=== PATIENT | female | born 1980 | race Caucasian/White ===

== ENCOUNTER 2020-03-17 11:25 | Emergency (ER) | payer MEDICARE, MEDICAID, SELFPAY ==
[2020-03-17 11:47] VITALS: BP 130/83; PULSE 74; RESP 16; TEMP 36.6; O2SAT 99; BMI 28.1
--- NOTE | 2020-03-17 11:52 | ED.FEMALEGU ---
HPI - Female Genitourinary General Chief complaint: Urogenital-Female Stated complaint: personal issue Time Seen by Provider: 03/17/20 11:50 Source: patient Mode of arrival: ambulatory Limitations: no limitations History of Present Illness HPI Narrative: pateint states her boyfriend cheated on her and she is here for urinary frequency and also told by a RN and MD at her OBGYN that she could come here for her chronic rectal genital wart to be removed in the ED, patient also wants STI testing and treatment, has not actually seen her OB just called them on the phone MD elicited complaint: dysuria and other (wants genital wart removed, wants STI testing) Pertinent past history: STI/STD (states boyfriend cheated on her) Onset (ago): week(s) Location of symptoms: external genitalia Severity: mild Consistency: constant Vaginal discharge: none Vaginal bleeding: none Urinary symptoms: Dysuria and Frequency Exacerbating factors: none Relieving factors: none Associated symptoms: denies other symptoms (has a rectal genital wart that is not responding to treatments) Treatment prior to arrival: none Sexual activity: Yes Patient : No Related Data Home Medications Medication Instructions Recorded Confirmed clonazepam 0.5 mg tablet 0.5 mg PO BID PRN 01/14/20 paroxetine HCl 20 mg tablet 20 mg PO DAILY 01/14/20 Allergies Allergy/AdvReac Type Severity Reaction Status Date / Time ibuprofen Allergy Unknown Hives Verified 01/09/20 15:18 acetaminophen AdvReac Unknown Stomach Verified 01/09/20 15:18 [Tylenol-Codeine #3] pain/burning codeine [Tylenol-Codeine #3] AdvReac Unknown Stomach Verified 01/09/20 15:18 pain/burning Review of Systems Review of Systems: Constitutional : No Weight loss, No Fever, No Chills ENT/Mouth : No sore throat, No Rhinorrhea Eyes: No Swelling, No Redness Cardiovascular : No Chest Pain, No SOB, NoEdema Respiratory : No Cough, No Sputum, No Wheezing Gastrointestinal : no Nausea, no Vomiting, no Diarrhea, no abdominal Pain, No Hematochezia, No Melena Genitourinary : pos Dysuria, posUrinary Frequency, No Hematuria, No Urgency, no vaginal discharge, no pelvic pain Musculoskeletal : No joint pain, No Myalgias, No Joint Swelling Skin : No Skin Lesions, No rash Neuro : No Weakness, No Numbness, No Dizziness, No Headache Psych : No Anxiety/Panic, No Depression Heme/Lymph: No Bruising, No Lymphadenopathy Endocrine : No Polyuria, No Polydipsia All other systems reviewed and are negative. [facility] Past Medical History Medical History BRCA positive Genital warts Surgical History History of gastric surgery History of surgery Family History Family History (Updated 01/09/20 @ 15:22 by Jessica Deal, RMA, [employer]) Father No problems noted. Mother Lung tumor Maternal Grandmother Breast cancer Son No problems noted. Son No problems noted. Daughter No problems noted. Daughter No problems noted. Maternal Grandmother Breast cancer Maternal Aunt Ovarian cancer Social History Social History (Updated 03/17/20 @ 12:01 by Peyton Gong DO) Use of substances other than those prescribed or required for medical reasons: No Advance Directives: No Advance Directives Information Provided: No Physical Exam Vital Signs: Vital Signs: Last Vital Signs Temp 97.8 F 03/17/20 11:47 Pulse 74 03/17/20 11:47 Resp 16 03/17/20 11:47 BP 130/83 03/17/20 11:47 Pulse Ox 99 03/17/20 11:47 Body Mass Index 28.1 Appearance: Alert. Oriented X3. No acute distress. Eyes: Pupils equal, round and reactive to light. ENT: Pharynx normal. Neck: Normal inspection. Neck supple. CVS: Normal heart rate and rhythm. Pulses normal. Respiratory: No respiratory distress. Breath sounds normal. Abdomen: Soft and nontender. rectal: RN Jose present but noted is quarter sized genital wart on rectal mucosa non bleeding Skin: Skin warm and dry. Normal skin color. Normal skin turgor. Extremities: No lower extremity edema. No calf ttp Neuro: Oriented X 3. No motor deficit. No sensory deficit. Course Course Course Narrative: patient came up to my desk asking to leave despite no results, I am not even sure she gave G+C, she asked for the surgeon's number and states she is leaving I told her I do not have test results yet and she mumbled, call me and walked out. MDM - Female Genitourinary MDM Narrative Medical decision making narrative: 39 yo female here for STI testing no symptoms does have urinary frequency will check UA - wants STI testing plan for ceftriaxone and doxycycline pending UPT, G+C urine due to lack of reagant supplies and self swab for trichomonas, patient is upset that her rectal wart will not be removed today but at this time given the location I do not feel comfortable removing this - I understand her frustrations but she needs to see a general surgeon so I will refer on an outpatient basis Lab Data Labs: Lab Results 03/17/20 Range/Units 12:07 Chlam trachomat DNA PCR Cancelled N.gonorrhoeae DNA (PCR) Cancelled Discharge Plan Discharge Clinical Impression: Genital warts Patient Disposition: Elopement Instructions: Genital Warts (ED) Additional Instructions: return to ED for any worsening symptoms or concerns Prescriptions: No Action paroxetine HCl 20 mg tablet 20 mg PO DAILY RF: 0 clonazepam 0.5 mg tablet 0.5 mg PO BID PRNRF: 0 Referrals: Gil Liu MD [Physician] - 1 week
--- NOTE | 2020-03-17 11:57 | PC.NURSE ---
pt was seen by dr tracey and recommendation is for surgical consult and removal o has also offered antibiotic coverage for std exposure
[2020-03-17] MEDS: cefTRIAXone sodium 500 MG, Lidocaine HCl 1 % MPF 1 ML IM (12:10)
[2020-03-17 12:24] LABS: Glucose Urine UA NEG (NEG); Leukocyte Esterase Urine NEG (NEG); Nitrite Urine NEG (NEG); PH 6.5 (5.0-8.0); Urine Blood NEG (NEG); Urine Ketones NEG (NEG); Urine Protein NEG (NEG-TRACE)
[2020-03-17 12:26] LABS: Appearance Urine CLEAR; Color Urine YELLOW; UPreg QC Valid YES; Urine Pregnancy NEGATIVE (NEGATIVE)
[2020-03-18 18:27] LABS: C. trachomatis RNA TMA NOT DETECTED (NOT DETECTED); N. gonorrhoeae RNA TMA NOT DETECTED (NOT DETECTED)
== END 2020-03-17 12:36 | disposition left against medical advice (07) ==
PROVIDERS: Emergency Provider Emergency Medicine; PCP Nurse Practitioner Family
DX: A63.0 Anogenital (venereal) warts (principal); R35.0 Frequency of micturition; Z20.2 Contact with and (suspected) exposure to infections with a predominantly sexual mode of transmission
CPT/HCPCS: 36415; 81003; 81025; 87491; 87591; 96372; 99282; 99284; J0696

== ENCOUNTER → 2020-03-24 09:59 | Outpatient (BNVA) | payer MEDICARE, MEDICAID, SELFPAY | PROVIDERS: PCP Nurse Practitioner Family; Visit Provider Surgery | DX: K62.9 Disease of anus and rectum, unspecified (principal) | CPT/HCPCS: 99202 ==

== ENCOUNTER 2020-03-31 13:34 | Outpatient (REF) | payer MEDICARE, MEDICAID, SELFPAY ==
[2020-03-31 13:38] VITALS: BP 129/75; PULSE 77; RESP 19; TEMP 36.4; O2SAT 99; BMI 30.7
--- NOTE | 2020-03-31 15:04 | PM.OP ---
Brief Operative Note Date of Service: 03/31/20 Pre-op diagnosis: Perianal lesion Post-op diagnosis: same Procedure: Excision of perianal lesion under local anesthesia Surgeon: Gil Liu MD Anesthesia: local Estimated blood loss (mL): 1 Pathology: other (Perianal lesion) Condition: stable Disposition: other (Home)
--- NOTE | 2020-03-31 16:55 | OP_ITS ---
SURGEON: Gil Liu MD INDICATIONS: The patient is a 39-year-old female with note of a lesion on the right anterior perianal area. This was elevated, fleshy, and irregular, and about 1 cm in diameter. She understood technique of excision under local anesthesia and she is aware of the risks, benefits, and alternatives. PREOPERATIVE DIAGNOSIS: Perianal skin lesion. POSTOPERATIVE DIAGNOSIS: Perianal skin lesion. PROCEDURE PERFORMED: Excision of perianal skin lesion. ESTIMATED BLOOD LOSS: COMPLICATIONS: ANESTHESIA: ASSISTANTS: SPECIMENS: DESCRIPTION OF PROCEDURE: She was brought to the minor procedure room and placed in right lateral decubitus position. The right buttock was retracted with wide tape. This allowed good exposure of the perianal area. The lesion was in the right perianal area anteriorly. This area was prepped and draped. Lidocaine 1% was used for local anesthesia. An elliptical incision was made in the skin around this lesion using blade #15. It was carried down to full-thickness skin and part of subcutaneous layer to excise the entire lesion. This was sent as specimen. I closed the incision with full-thickness 3-0 absorbable plain gut sutures. Dressings were applied. She tolerated procedure well. There were no complications noted. She will be seen in the office for followup and wound check. MD KAREN Mccarty/ADRIANL / [phone]
== END 2020-03-31 15:00 | disposition home or self-care (01) ==
LOC: HO.MS 13:34
PROVIDERS: PCP Nurse Practitioner Family; Visit Provider Surgery
PROC: (CPT 46922; principal; 2020-03-31 13:50)
DX: D01.3 Carcinoma in situ of anus and anal canal (principal); A63.0 Anogenital (venereal) warts; F17.200 Nicotine dependence, unspecified, uncomplicated; Z79.899 Other long term (current) drug therapy; Z98.84 Bariatric surgery status; Z90.49 Acquired absence of other specified parts of digestive tract; Z88.8 Allergy status to other drugs, medicaments and biological substances
CPT/HCPCS: 46922; 88305; 88342; 88360

== ENCOUNTER 2020-06-30 16:05 | Emergency (ER) | payer MEDICARE, MEDICAID, SELFPAY ==
[2020-06-30 16:51] VITALS: BP 140/82; PULSE 61; RESP 18; TEMP 36.8; O2SAT 100; BMI 33.5
[2020-06-30 17:17] LABS: MANUAL DIFF FLAG NO
[2020-06-30 17:18] LABS: Basophils Absolute Auto 0.1 X10*3/uL (0.0-0.2); Basophils Percent Auto 0.6 % (0-2); Eosinophils Absolute Auto 0.2 X10*3/uL (0.0-0.4); Eosinophils Percent Auto 1.6 % (0-4); Hematocrit 48.2 % (37-47); Hemoglobin 15.9 g/dl (12.0-16.0); Imm Gran Abs Auto 0.03 X10*3/uL (0.00-0.03); Imm Gran Pct Auto 0.3 % (0.0-0.4); Lymphocytes Absolute Auto 2.9 X10*3/uL (1.2-4.9); Lymphocytes Percent Auto 28.2 % (20-40); Mean Corpuscular Hemoglobin 29.9 pg (27.0-33.0); Mean Corpuscular Volume 90.6 fL (80-98); Mean Platelet Volume 9.7 fL (9.4-12.3); Monocytes Absolute Auto 0.7 X10*3/uL (0.1-1.2); Monocytes Percent Auto 6.9 % (2-11); Neutrophils Absolute Auto 6.4 X10*3/uL (2.0-8.3); Neutrophils Percent Auto 62.4 % (45-73); Platelet Count 248 X10*3/uL (160-400); Red Blood Count 5.32 X10*6/uL (4.20-5.50); Red Cell Distribution Width 13.6 % (11.0-16.0); White Blood Count 10.3 X10*3/uL (4.8-10.8)
[2020-06-30 17:24] LABS: Glucose Urine UA NEG (NEG); Leukocyte Esterase Urine NEG (NEG); Nitrite Urine NEG (NEG); PH 5.5 (5.0-8.0); Urine Blood NEG (NEG); Urine Ketones NEG (NEG); Urine Protein NEG (NEG-TRACE)
[2020-06-30 17:26] LABS: Appearance Urine CLEAR; Color Urine YELLOW; UPreg QC Valid YES; Urine Pregnancy NEGATIVE (NEGATIVE)
[2020-06-30 17:57] LABS: Alanine Aminotransferase 14 U/L (0-31); Albumin Level 4.4 g/dL (3.5-5.0); Alkaline Phosphatase 86 U/L (39-117); Anion Gap 12 (12-20); Aspartate Amino Transferase 18 U/L (5-31); Bilirubin Total 1.5 mg/dL (0.0-1.0); Blood Urea Nitrogen 7 mg/dL (9-16); Calcium 9.4 mg/dL (8.4-10.2); Carbon Dioxide 28 mmol/L (22-29); Chloride 102 mmol/L (96-108); Creatinine Clr Calc Pharmacy 119.3; Estimated Glomerular Filt Rate > 60; Glucose Random 87 mg/dL (60-115); Potassium 3.8 mmol/L (3.3-5.1); Sodium 138 mmol/L (135-145); Total Protein 7.8 g/dL (6.5-8.0)
== END 2020-06-30 20:25 | disposition left against medical advice (07) ==
PROVIDERS: Emergency Provider Emergency Medicine; PCP Nurse Practitioner Family
DX: R10.9 Unspecified abdominal pain (principal); R10.2 Pelvic and perineal pain
CPT/HCPCS: 36415; 80053; 81003; 81025; 85025; 99283

== ENCOUNTER 2020-12-01 10:29 | Emergency (ER) | payer MEDICARE, MEDICAID, SELFPAY ==
--- NOTE | ~2020-12-01 | XR_ITS ---
EXAMINATION: XR ANKLE, LEFT CLINICAL INFORMATION: Pain COMPARISON: None TECHNIQUE: AP, lateral, and mortise views of the left ankle. FINDINGS: There is a well-corticated soft tissue ossification inferior to the lateral malleolus suggestive of old trauma. No acute fracture or dislocation is seen. The ankle mortise is normal. There are calcaneal spurs. Soft tissues are normal. XR/XR ankle LT min 3V IMPRESSION: No acute fracture or dislocation. Evidence of old trauma to the lateral malleolus. Calcaneal spurs.
[2020-12-01 11:02] VITALS: BP 130/81; PULSE 66; RESP 16; TEMP 36.1; O2SAT 98; BMI 33.0
== END 2020-12-01 12:51 | disposition left against medical advice (07) ==
LOC: HO.ED 12:50
PROVIDERS: Emergency Provider Emergency Medicine; PCP Nurse Practitioner Family
DX: M25.572 Pain in left ankle and joints of left foot (principal)
CPT/HCPCS: 73610; 99282; 99283

== ENCOUNTER → 2022-04-27 08:53 | Outpatient (BNVA) | payer OTHER, SELFPAY | PROVIDERS: PCP Nurse Practitioner Family; Visit Provider Internal Medicine | DX: S67.190A Crushing injury of right index finger, initial encounter (principal); S67.192A Crushing injury of right middle finger, initial encounter; W23.1XXA Caught, crushed, jammed, or pinched between stationary objects, initial encounter | CPT/HCPCS: 73140; 99204 ==

== ENCOUNTER → 2022-05-02 14:19 | Outpatient (BNVA) | payer OTHER, SELFPAY | PROVIDERS: PCP Nurse Practitioner Family; Visit Provider Physician Assistant Medical | DX: S67.190A Crushing injury of right index finger, initial encounter (principal); S67.192A Crushing injury of right middle finger, initial encounter; W23.1XXA Caught, crushed, jammed, or pinched between stationary objects, initial encounter | CPT/HCPCS: 99213 ==

== ENCOUNTER 2023-06-19 09:21 | Emergency (ER) | payer OTHER, SELFPAY ==
--- NOTE | ~2023-06-19 | US_ITS ---
EXAMINATION: US VENOUS ULTRASOUND WITH DOPPLER LOWER EXTREMITY, RIGHT CLINICAL INFORMATION: Calf pain. History of deep vein thrombosis. COMPARISON: None available. TECHNIQUE: Ultrasound of the deep veins is performed from the hip to the calf with compression sonography and color and pulse Doppler assessment. Spectral analysis with color-flow imaging is performed. FINDINGS: The common femoral vein is compressible and exhibits a normal phasic waveform; this suggests that the iliac veins are widely patent above. Within the proximal thigh, the visualized profunda femoris vein is normal. The examined greater saphenous vein and saphenofemoral junction are normal. Superficial femoral vein is patent in the proximal, mid and distal thigh. Popliteal vein is normal to the level of the trifurcation. On compression landaverde scale and color Doppler images, the visualized posterior tibial and peroneal veins of the calf are patent. Trace amount of fluid is seen at the posterior right knee joint. No Sagastume's cyst. US/US venous duplex LE RT IMPRESSION: No evidence of deep vein thrombosis in the right lower extremity.
[2023-06-19 09:48] VITALS: BP 99/67; PULSE 74; RESP 18; TEMP 36.9; O2SAT 100; BMI 26.9
[2023-06-19] MEDS: Acetaminophen 325 MG TABLET 975 MG PO (11:44)
--- NOTE | 2023-06-19 11:44 | ED_ITS ---
HPI - Extremity Problem General Chief complaint: Extremity Injury, Lower Stated complaint: R leg cramp- Time Seen by Provider: 06/19/23 11:06 Source: patient Mode of arrival: wheelchair Limitations: no limitations History of Present Illness HPI Narrative: 42 yo female with history of superficial thrombophlebitis to LLE in the past who is currently 7 weeks presents to the ER for evaluation of LLE pain and cramping for the last 3 weeks, acute worse at 6am today making it so she cannot ambulate. She states the pain Started in the right calf intermittently 3 weeks ago. It felt like a cramping pain. Complaint: extremity pain Onset (ago): week(s) (3) Pain Consistency: intermittent Quality: stabbing Radiation: none Relieving factors: nothing Exacerbating factors: other (swallowing) Associated symptoms: denies other symptoms Related Data Home Medications ?Medication ?Instructions ?Recorded ?Confirmed clonazepam 0.5 mg tablet 0.5 mg PO BID PRN 01/14/20 03/24/20 paroxetine HCl 20 mg tablet 20 mg PO DAILY 01/14/20 03/24/20 lorazepam 1 mg tablet 1 mg PO DAILY PRN 03/24/20 03/24/20 Previous Rx's ?Medication ?Instructions ?Recorded ibuprofen 800 mg tablet 800 mg PO TID PRN pain #30 tabs 04/27/22 Allergies Allergy/AdvReac Type Severity Reaction Status Date / Time codeine [Tylenol-Codeine #3] AdvReac Intermediate Stomach Verified 06/19/23 09:51 pain/burning Review of Systems 2 Review of Systems: Yes all other systems are reviewed and are negative PMFSH Past Medical History Medical History (Updated 06/19/23 @ 13:22 by TAYLOR Kearns) Perianal lesion Smoker Depression Genital warts BRCA positive Surgical History History of gastric surgery History of surgery Family History Family History Father No problems noted. Mother Lung tumor Maternal Grandmother Breast cancer Son No problems noted. Son No problems noted. Daughter No problems noted. Daughter No problems noted. Maternal Grandmother Breast cancer Maternal Aunt Ovarian cancer Social History Social History Alcohol intake: never Advance Directives: No Advance Directives Information Provided: Yes Physical Exam 2 Vital Signs: Vital Signs: Last Vital Signs Temp 98.5 F 06/19/23 12:00 Pulse 71 06/19/23 12:00 Resp 18 06/19/23 12:00 BP 103/58 L 06/19/23 12:00 Pulse Ox 98 06/19/23 12:00 O2 Del Method Room Air 06/19/23 12:00 BMI result Body Mass Index 26.9 Appearance: Alert. Oriented X3. No acute distress. Head: normocephalic, atraumatic. Eyes: Pupils equal, round and reactive to light. ENT: Pharynx normal. Neck: Normal inspection. CVS: Normal heart rate and rhythm. Pulses normal. Respiratory: No respiratory distress. Breath sounds normal. Abdomen: Soft and nontender. +BS x4 Skin: Skin warm and dry. Normal skin color. Normal skin turgor. No rashes. Extremities: No lower extremity edema. No joint swelling. scattered superficial bruising to the right lateral knee and right anterior lower leg. patient has tenderness to the right calf and right lateral joint space of the knee. Normal passive range of motion with some discomfort. No pain or tenderness of the popliteal fossa. Mild soft tissue tenderness of the right lateral thigh. Leg is warm and well perfused. Neurovascularly intact distally. Neuro/psych: Oriented X 3. No motor deficit. No sensory deficit. CN II-XII intact. Normal speech and cognition. Medications Administered Discontinued Medications Generic Name Dose Route Start Last Admin Trade Name Freq PRN Reason Stop Dose Admin Acetaminophen 975 mg 06/19/23 11:07 06/19/23 11:44 Acetaminophen 325 Mg Tablet PO 06/19/23 11:08 975 mg ONCE ONE Administration Medical Decision Making Medical Decision Making [facility] Narrative: 42-year-old female, currently 7 weeks along who presents to the ER for intermittent calf pain and cramping for the last 2-3 weeks along with nontraumatic right lateral knee pain. The blood clot in the left leg in the past was superficial, treated with aspirin. She has no chest pain or shortness of breath. Ultrasound of the right lower extremity was negative for deep vein thrombosis. Her lab workup was unremarkable. She was placed in Sukh wrap for compression and support of the right knee with improvement in her symptoms. She can now ambulate. At this time she is stable for discharge home with outpatient follow- up with OB and her PCP. She was given strict return precautions and expressed understanding. All questions were answered Differential Diagnosis Differential Diagnoses: The differential diagnosis associated with the presentation includes acute DVT, superficial thrombophlebitis, muscle strain, muscle cramping, dehydration, knee effusion, knee sprain, ligamentous injury, septic joint Admission/Observation Consideration of admission/observation: Escalation of care including admission/observation considered Lab Data MDM Lab Attestation statement: I reviewed the patient's lab results. 06/19/23 12:36 06/19/23 12:36 Labs: Lab Results 06/19/23 Range/Units 12:36 WBC 8.1 (4.8-10.8) X10*3/uL RBC 4.16 L (4.20-5.50) X10*6/uL Hgb 12.1 (12.0-16.0) g/dl Hct 36.3 L (37.0-47.0) % MCV 87.3 (80.0-98.0) fL MCH 29.1 (27.0-33.0) pg MCHC 33.3 (31.0-35.0) g/dl RDW 15.0 (11.0-16.0) % Plt Count 226 (160-400) X10*3/uL MPV 9.7 (9.4-12.3) fL Immature Gran % (Auto) 0.4 (0.0-0.4) % Neut % (Auto) 62.2 (45-73) % Lymph % (Auto) 27.1 (20-40) % [place]quois % (Auto) 7.2 (2-11) % Eos % (Auto) 2.5 (0-4) % Baso % (Auto) 0.6 (0-2) % Lymph # (Auto) 2.2 (1.2-4.9) X10*3/uL [place]ois # (Auto) 0.6 (0.1-1.2) X10*3/uL Eos # (Auto) 0.2 (0.0-0.4) X10*3/uL Baso # (Auto) 0.1 (0.0-0.2) X10*3/uL Abs Immat Gran (auto) 0.03 (0.00-0.03) X10*3/uL Absolute Neuts (auto) 5.0 (2.0-8.3) x10*3/uL Absolute Nucleated RBC 0.000 (0.0-0.012) X10*3/uL Nucleated RBC % (auto) 0.0 (0.0-0.2) /100WBC Sodium 140 (135-145) mmol/L Potassium 3.7 (3.3-5.1) mmol/L Chloride 108 (96-108) mmol/L Carbon Dioxide 27 (22-29) mmol/L Anion Gap 9 L (12-20) BUN 5 L (9-16) mg/dL Creatinine 0.66 (0.5-1.4) mg/dL Estim Creat Clear Calc 116.6 Estimated GFR > 60 Random Glucose 97 (60-115) mg/dL Calcium 8.9 (8.4-10.2) mg/dL Magnesium 2.0 (1.6-2.6) mg/dL Total Bilirubin 0.8 (0.0-1.0) mg/dL Direct Bilirubin 0.3 (0.0-0.5) mg/dL AST 9 (5-31) U/L ALT 6 (0-31) U/L Alkaline Phosphatase 56 (39-117) U/L Total Protein 6.6 (6.5-8.0) g/dL Albumin 3.6 (3.5-5.0) g/dL Independent Interpretation I performed an independent interpretation of an: Ultrasound Interpretation: no visible clot, agree w/ radiology read Radiology Impression Discussion of test interpretation with radiology: I have reviewed the radiologist's reading. Radiologist Impression: US/US venous duplex LE RT IMPRESSION: No evidence of deep vein thrombosis in the right lower extremity. External Record Review External record reviewed: Outpatient record, Prior outpatient labs and Prior outpatient radiology Prescription Management I considered prescription management with: Pain Medication Critical Care Time Critical Care Time Critical Care Time: No Discharge Plan Discharge Clinical Impression: Leg pain, right Patient Disposition: Home, Self-Care Instructions: Leg Cramps (ED), Leg Pain (ED) Additional Instructions: Your ultrasound was negative for blood clot. Your lab workup was unremarkable. Where the provided Sukh wrap for compression and support. Rest your leg and elevate as possible. Take Tylenol 1000 mg every 8 hours as needed for pain. Follow-up with OBGYN and your primary care doctor. If you develop new or worsening symptoms call 911 or come back to the ER for further evaluation. Prescriptions: No Action ibuprofen 800 mg tablet 800 mg PO TID PRN (Reason: pain) Qty: 30 0RF Rx Instructions: pt confirms no allergy, tolerates without hives. paroxetine HCl 20 mg tablet 20 mg PO DAILY clonazepam 0.5 mg tablet 0.5 mg PO BID PRN lorazepam 1 mg tablet 1 mg PO DAILY PRN Referrals: Km Borges, [facility] [Primary Care Provider] - Stand Alone Forms: Work/School Release Print Language: Frisian
[2023-06-19 12:00] VITALS: BP 103/58; PULSE 71; RESP 18; TEMP 36.9; O2SAT 98
[2023-06-19 12:40] LABS: MANUAL DIFF FLAG NO
[2023-06-19 12:45] LABS: Basophils Absolute Auto 0.1 X10*3/uL (0.0-0.2); Basophils Percent Auto 0.6 % (0-2); Eosinophils Absolute Auto 0.2 X10*3/uL (0.0-0.4); Eosinophils Percent Auto 2.5 % (0-4); Hematocrit 36.3 % (37.0-47.0); Hemoglobin 12.1 g/dl (12.0-16.0); Imm Gran Abs Auto 0.03 X10*3/uL (0.00-0.03); Imm Gran Pct Auto 0.4 % (0.0-0.4); Lymphocytes Absolute Auto 2.2 X10*3/uL (1.2-4.9); Lymphocytes Percent Auto 27.1 % (20-40); Mean Corpuscular HGB Conc 33.3 g/dl (31.0-35.0); Mean Corpuscular Hemoglobin 29.1 pg (27.0-33.0); Mean Corpuscular Volume 87.3 fL (80.0-98.0); Mean Platelet Volume 9.7 fL (9.4-12.3); Monocytes Absolute Auto 0.6 X10*3/uL (0.1-1.2); Monocytes Percent Auto 7.2 % (2-11); Neutrophils Percent Auto 62.2 % (45-73); Platelet Count 226 X10*3/uL (160-400); Red Blood Count 4.16 X10*6/uL (4.20-5.50); White Blood Count 8.1 X10*3/uL (4.8-10.8)
[2023-06-19 13:00] LABS: Alanine Aminotransferase 6 U/L (0-31); Albumin Level 3.6 g/dL (3.5-5.0); Alkaline Phosphatase 56 U/L (39-117); Anion Gap 9 (12-20); Aspartate Amino Transferase 9 U/L (5-31); Bilirubin Direct 0.3 mg/dL (0.0-0.5); Bilirubin Total 0.8 mg/dL (0.0-1.0); Blood Urea Nitrogen 5 mg/dL (9-16); Calcium 8.9 mg/dL (8.4-10.2); Carbon Dioxide 27 mmol/L (22-29); Chloride 108 mmol/L (96-108); Creatinine Clr Calc Pharmacy 116.6; Estimated Glomerular Filt Rate > 60; Glucose Random 97 mg/dL (60-115); Potassium 3.7 mmol/L (3.3-5.1); Sodium 140 mmol/L (135-145); Total Protein 6.6 g/dL (6.5-8.0)
[2023-06-19 14:00] VITALS: BP 98/69; PULSE 61; RESP 18; TEMP 36.1; O2SAT 98
== END 2023-06-19 14:04 | disposition home or self-care (01) ==
PROVIDERS: Physician Assistant; Emergency Provider Emergency Medicine; PCP Nurse Practitioner Family
DX: M79.604 Pain in right leg (principal)
CPT/HCPCS: 36415; 80048; 80076; 83735; 85025; 93971; 99284

== ENCOUNTER 2024-10-20 13:24 | Outpatient (AMB) | payer OTHER, SELFPAY ==
--- NOTE | 2024-10-20 13:27 | MHC.PC.OV ---
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: No Accompanied by: Self / Same As Patient Allergies codeine (Tylenol-Codeine #3) Adverse Reaction (Intermediate, Verified 10/20/24 13:39) Stomach pain/burning Medication List - Last Reconciled 10/20/24 by Jasmyne Garcia PA-C Tobacco use date assessed: 10/20/24 Dental Screening Dental Screen Date: 10/20/24 Did you have a dental visit in the last 12 months?: Yes Did you have a dental problem in the last 6 months where you did not have access to dental care?: No Was dental information given to patient?: 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 Presenting with chronic low back pain and obesity. Chronic low back pain has been persistent and worsening over the years, initially noted during previous employment involving heavy lifting. The pain is described as severe, affecting daily activities and causing difficulty in standing upright. Sciatica symptoms include pain radiating down the right leg, with occasional numbness in the toes. Obesity has been a concern post-, with significant weight gain noted since the of her child. The patient reports a history of cervical cancer, treated with surgical intervention involving removal of part of the cervix. An adrenal mass was identified post-, with follow-up hindered by insurance changes. [facility] Medical History (Updated 10/21/24 @ 07:50 by Jasmyne Garcia PA-C) Perianal lesion Smoker Depression Genital warts BRCA positive Surgical History History of gastric surgery History of surgery Family History Father No problems noted. Mother Lung tumor Maternal Grandmother Breast cancer Son No problems noted. Son No problems noted. Daughter No problems noted. Daughter No problems noted. Maternal Grandmother Breast cancer Maternal Aunt Ovarian cancer Social History Household Members: Children Both parents involved: Yes Caregiver staying overnight: No Housing: House Are you a primary care information associate to a significant other at home: No Do you presently have visiting nurse or other home services: No Alcohol intake: former Patient Tobacco Use Status: Current everyday Tobacco user Cigarette Packs Per Day: 0.5 Cigarettes Per Day: 10 e-Cigarette/Vaping Use: Never Used Substance Use Type: Marijuana service: No Current occupational status: employed Cognitive needs: No Hearing needs: No Vision needs: Yes (pt wears contacts ) Questionnaire PHQ-9 Over the last 2 weeks, how often have you been bothered by any of the following problems? 1. Little interest or pleasure in doing things: not at all 2. Feeling down, depressed, or hopeless: not at all 3. Trouble falling or staying asleep, or sleeping too much: several days 4. Feeling tired or having little energy: more than half the days 5. Poor appetite or overeating: several days 6. Feeling bad about yourself - or that you are a failure or have let yourself or your family down: not at all 7. Trouble concentrating on things, such as reading the newspaper or watching television: nearly every day 8. Moving or speaking so slowly that other people could have noticed. Or the opposite - being so fidgety or restless that you have been moving around a lot more than usual: several days 9. Thoughts that you would be better off or of hurting yourself in some way: not at all Total score: 8 Depression Screening Interpretation: Positive (Ref. for counseling) Depression Screening Follow-up: Existing condition and Declines treatment Depression Screening Done: Yes 69053 - PHQ-9 Billing: Yes Source: Developed by Drs. Hugo Martinez, Raquel Parmar, Travis Montemayor and colleagues, with an educational florencia from [employer]. Thrive Questionnaire Date Thrive assessed: 10/20/24 I am a: Patient What is your living situation today?: I have a steady place to live Within the past 12 months, did the food you bought not last and you didn't have the money to get more?: Never true Within the past 12 months, did you worry whether your food would run out before you got money to buy more?: Never true Do you have trouble paying for medicines?: No Do you have trouble getting transportation to medical appointments?: No Do you have trouble paying your heating and electricity bill?: No Do you have trouble taking care of your child, family member or friend?: No Do you have trouble with day-to-day activities such as bathing, preparing meals, shopping, managing finances, etc.?: No Are you currently unemployed and looking for a job?: No Are you interested in more education?: No Please select the resources that you would like help with: Childcare Currently or been in a relationship where the following occur: No concerns reported and I choose not to answer THRIVE Score: 0 AUDIT C Alcohol Use Questionnaire (AUDIT-C) 1. How often do you have a drink containing alcohol?: Never 3. How often do you have six or more drinks on one occasion?: Never Total Score: 0 HUMPHREY-7 AMB Questionnaire HUMPHREY-7 Date HUMPHREY - 7 assessed: 10/20/24 Feeling nervous, anxious, or on edge: 1 = Several days Not being able to stop or control worryin = Several days Worrying too much about different things: 1 = Several days Trouble relaxin = Several days Being so restless that it is hard to sit still: 1 = Several days Becoming easily annoyed or irritable: 0 = Not at all Feeling afraid as if something awful might happen: 0 = Not at all Total HUMPHREY-7 score (0-4 normal; 5-9 mild; 10-14 moderate; 15-21 severe): 5 Source: Developed by Drs. Hugo Martinez, Raquel Parmar, Travis Montemayor and colleagues, with an educational florencia from [employer]. HUMPHREY-7 Assessment Billing HUMPHREY-7 Assessment Tool: HUMPHREY-7 Assessment 95397 Review of Systems Const Denies body aches, Denies fatigue, Denies fever(s), Denies frequent falls, Denies headache(s) and Denies weakness Eyes Reports no additional complaints and Denies change in vision ENT Denies dysphagia, Denies dizziness, Denies facial pain, Denies headache(s), Denies nasal congestion and Denies odynophagia Card Denies chest pain, Denies syncope, Denies irregular heart rhythm, Denies leg edema, Denies lightheadedness and Denies dyspnea Resp Denies cough and Denies dyspnea GI Denies constipation, Denies dysphagia, Denies dyspepsia, Denies diarrhea, Denies nausea, Denies odynophagia and Denies vomiting Denies urinary frequency, Denies dysuria, Denies urinary hesitancy and Denies urinary urgency Musc Denies back pain and Denies myalgias Skin/Breast Reports system reviewed and no additional complaints, except as documented Neuro Denies dizziness, Denies syncope, Denies frequent falls, Denies headache(s) and Denies weakness Psych Reports no additional complaints Endo Denies fatigue Physical exam (Primary Care) Vital Signs: Last Vital Signs Pulse 84 10/20/24 13:28 BP 124/78 10/20/24 13:28 Pulse Ox 96 10/20/24 13:28 BMI result Body Mass Index 40.1 BMI Assessment/Plan discussion: High BMI High, discussed plan: lifestyle, weight reduction, dietary and physical activity Tobacco/Smoking Status: Tobacco use Status Tobacco use date assessed 10/20/24 10/20/24 13:37 Patient Tobacco Use Status Current everyday Tobacco 10/20/24 13:37 e-Cigarette/Vaping Use Never Used 10/20/24 13:37 Are you ready to quit: Yes Tobacco cessation counseling provided: Yes Items discussed: Nicotine replacement and Other Relapse Prevention: discussed the importance of a supportive environment, weight gain after smoking is common and discussed dietary, exercise and/or lifestyle changes Number of minutes spent counselin CPT code: 80979 - 4-10 Minutes PHQ-9: PHQ-9 Score PHQ-9: Total score 8 10/20/24 13:51 Depression Screening Interpretation: Positive (Ref. for counseling) Depression Screening Follow-up: Existing condition and Declines treatment Thrive Assessment: Date of Thrive Assessment Date Thrive assessed 10/20/24 10/20/24 13:37 Currently or been in a relationship where the following occur: No concerns reported and I choose not to answer Const General: cooperative, healthy appearing, comfortable and no acute distress Orientation/consciousness: patient oriented x3 HENMT Head: Yes normocephalic Ears: hearing grossly normal bilaterally General nose exam: Normal external nose present Eyes General: appearance normal, both eyes and all related structures Conjunctivae: conjunctivae normal Neck Neck: Yes full ROM and Yes no lymphadenopathy Resp Effort & Inspection: normal respiratory effort Auscultation: clear to auscultation bilaterally, no crackles, no rales, no rhonchi and no wheezes Cardio Rate: regular rate Rhythm: regular rhythm Back/Spine/Pelvis Other: No tenderness to palpation over the spine or paraspinal muscles. Positive straight leg raise on the right side Skin General skin exam: no rashes or lesions noted Neuro General: patient oriented x3 Gait exam (Neuro): Normal gait present Extrem General: Yes normal to inspection, Yes full ROM and No edema Ankle/foot/toe images:  1. hard callus Psych Affect: normal affect Attitude: cooperative Insight: Good insight present (Psych) Judgement: Good judgement present (Psych) Coding Level of Care Code New Pt Level 4 (25323) Diagnoses Smoker F17.200 Depression F32.9 Anxiety F41.9 Adrenal mass E27.8 Morbid obesity with BMI of 40.0-44.9, adult E66.01; Z68.41 Lower back pain M54.50 Right knee pain M25.561 Ingrown toenail L60.0 Foot callus L84 Additional Codes HUMPHREY-7 Assessment Billing - HUMPHREY-7 Assessment Tool: HUMPHREY-7 Assessment 15108 ([id number]) PHQ-9 - 95692 - PHQ-9 Billing: Yes ([id number]) Vital Signs *Quality* - CPT code: 08293 - 4-10 Minutes ([id number]) Assessment & Plan Assessment & Plan (1) Smoker: Code(s): F17.200 - Nicotine dependence, unspecified, uncomplicated Category: Social Hx Plan: Smoking cigarettes and the use of tobacco can be harmful. We discussed the importance of stopping and options to aid in smoking cessation. She does not like nicotine replacement therapy but She is willing to try Chantix which has been sent to the pharmacy today. (2) Depression: Code(s): F32.9 - Major depressive disorder, single episode, unspecified Category: Medical Plan: Patient having a history of depression and anxiety is no longer on medication at this time and would like to avoid medical management if possible. She believes most of her depression and anxiety is related to her weight. Referral was placed to counseling (3) Anxiety: Code(s): F41.9 - Anxiety disorder, unspecified Category: Medical Plan: See above (4) Adrenal mass: Comment: left adrenal mass 2.6 cm seen on CTA 12/2023 Code(s): E27.8 - Other specified disorders of adrenal gland Category: Medical Plan: Referral was placed endocrinology for further evaluation. (5) Morbid obesity with BMI of 40.0-44.9, adult: Code(s): E66.01 - Morbid (severe) obesity due to excess calories; Z68.41 - Body mass index [BMI] 40.0-44.9, adult Category: Medical Plan: Healthy diet and regular exercise is encouraged. Patient was counseled today on the risks and benefits of GLP-1 injections as well as the dosing schedule. She has no family history or personal history of thyroid disease and no gallbladder disease. Discussed with the patient the potential GI side effects of this medication. Plan to have repeat blood work after one month of therapy to monitor kidney and liver function before increasing the dose of this medication. Follow up in 2 months for a weight check. Plan to trial Zepbound (6) Lower back pain: Code(s): M54.50 - Low back pain, unspecified Category: Medical Plan: Patient having low back pain with positive straight leg raise in the right side. Plan to obtain x-ray for further evaluation. She does have frequent nighttime pain that we will wake her from sleep and patient was prescribed a muscle relaxer for nighttime use. Referral was also placed to physical therapy today. (7) Right knee pain: Code(s): M25.561 - Pain in right knee Category: Medical Plan: Plan to obtain x-ray for further evaluation. Patient may use Tylenol ibuprofen as needed as well as muscle creams for a right knee pain. (8) Ingrown toenail: Code(s): L60.0 - Ingrowing nail Category: Medical Plan: Referral was placed to Podiatry today. (9) Foot callus: Code(s): L84 - Corns and callosities Category: Medical Plan: Referral was placed to Podiatry today Plan The patient will undergo x-rays of the back and knee to evaluate musculoskeletal concerns, with a referral to physical therapy for chronic low back pain and sciatica management. Cyclobenzaprine is prescribed for nighttime pain relief. For obesity management, Zepbound injections are prescribed, contingent on liver function monitoring. A follow-up in three months will review progress and imaging outcomes. Counseling is recommended for depression, with virtual options available. A human resources operations manager referral addresses the corn on the left foot, and follow-up on the adrenal mass is planned, considering insurance constraints. This note was constructed using voice recognition software. While every effort has been made to ensure accuracy and reference archivist, still areas may have been included sometimes these areas may affect the content or meeting of the given symptoms. Total time spent caring for the patient today was 30 minutes. This includes time spent before the visit reviewing the chart, time spent during the visit, and time spent after the visit and documentation. Patient was informed and verbally consented to the use of an ambient scribe for clinic note documentation during this visit. Orders: Orders Vitamin B12 and Folate 10/20/24 E66. - Morbid (severe) obesity due to excess calories, Z13.21 - Encounter for screening for nutritional disorder, Z68.41 - Body mass index [BMI] 40.0-44.9, adult Free T4 (Free Thyroxine) 10/20/24 E66. - Morbid (severe) obesity due to excess calories, Z00.00 - Encounter for general adult medical examination without abnormal findings, Z68.41 - Body mass index [BMI] 40.0-44.9, adult Lipid Panel 10/20/24 Z13.220 - Encounter for screening for lipoid disorders XR thoracic spine 2V 10/20/24 M54.50 - Low back pain, unspecified XR lumbar spine 2-3V 10/20/24 M54.50 - Low back pain, unspecified PT Evaluation and Treatment 10/20/24 M25.561 - Pain in right knee, M54.50 - Low back pain, unspecified Comprehensive Met. Panel 10/20/24 E66. - Morbid (severe) obesity due to excess calories, Z00.00 - Encounter for general adult medical examination without abnormal findings, Z68.41 - Body mass index [BMI] 40.0-44.9, adult Complete Blood Count Auto Diff 10/20/24 E66. - Morbid (severe) obesity due to excess calories, Z00.00 - Encounter for general adult medical examination without abnormal findings, Z68.41 - Body mass index [BMI] 40.0-44.9, adult Vitamin D 25-OH Total 10/20/24 E66.01 - Morbid (severe) obesity due to excess calories, Z13.21 - Encounter for screening for nutritional disorder, Z68.41 - Body mass index [BMI] 40.0-44.9, adult TSH reflex Free T4 10/20/24 E66.01 - Morbid (severe) obesity due to excess calories, Z13.29 - Encounter for screening for other suspected endocrine disorder, Z68.41 - Body mass index [BMI] 40.0-44.9, adult XR knee RT 2V 10/20/24 M25.561 - Pain in right knee Referrals Counseling Referral F32.9 - Major depressive disorder, single episode, unspecified, F41.9 - Anxiety disorder, unspecified Podiatry Referral L60.0 - Ingrowing nail Medications: New tirzepatide (weight loss) (Zepbound) for 4 weeks 2.5 mg (0.5 mL) subcut QWEEK 2 mL 0RF varenicline tartrate (Chantix Starting Month Box) PO PER PKG DIR 53 ea 0RF cyclobenzaprine 5 mg PO BEDTIME 20 tabs 0RF
[2024-10-20 13:28] VITALS: BP 124/78; PULSE 84; O2SAT 96; BMI 40.1
== END 2024-10-20 14:20 | disposition home or self-care (01) ==
LOC: HO.HMCH 13:25
PROVIDERS: PCP Nurse Practitioner Family
DX: M54.50 Low back pain, unspecified (principal); F17.210 Nicotine dependence, cigarettes, uncomplicated; E66.01 Morbid (severe) obesity due to excess calories; Z68.41 Body mass index [BMI] 40.0-44.9, adult; F32.9 Major depressive disorder, single episode, unspecified; F41.9 Anxiety disorder, unspecified; E27.8 Other specified disorders of adrenal gland; M25.561 Pain in right knee; L60.0 Ingrowing nail; L84 Corns and callosities

== ENCOUNTER → 2024-10-20 13:24 | Outpatient (BNVA) | payer OTHER, SELFPAY | PROVIDERS: PCP Nurse Practitioner Family | DX: E66.01 Morbid (severe) obesity due to excess calories (principal); M54.50 Low back pain, unspecified; F17.200 Nicotine dependence, unspecified, uncomplicated; F32.9 Major depressive disorder, single episode, unspecified; F41.9 Anxiety disorder, unspecified; E27.8 Other specified disorders of adrenal gland; M25.561 Pain in right knee; L60.0 Ingrowing nail; L84 Corns and callosities; Z68.41 Body mass index [BMI] 40.0-44.9, adult | CPT/HCPCS: 96127; 99202 ==

== ENCOUNTER 2024-10-23 10:27 | Outpatient (REF) | payer OTHER, SELFPAY ==
--- NOTE | ~2024-10-23 | XR_ITS ---
EXAMINATION: XR LUMBOSACRAL SPINE CLINICAL INFORMATION: M54.50 - Low back pain, unspecified COMPARISON: December 15, 2015. TECHNIQUE: AP and lateral views. FINDINGS: Anterior marginal osteophyte formation and endplate sclerosis and decreased intervertebral disc height at T11-12 and to a lesser extent T10-11. No acute cortical disruption or malalignment. No lytic or blastic lesions. XR/XR lumbar spine 2-3V IMPRESSION: Spondylosis T10-11 and T11-T12. Electronically signed by: Pro Flores MD 10/23/2024 11:32 AM EDT
--- NOTE | ~2024-10-23 | XR_ITS ---
EXAMINATION: XR KNEE, RIGHT CLINICAL INFORMATION: M25.561 - Pain in right knee COMPARISON: None available. TECHNIQUE: AP and lateral views of the right knee. FINDINGS: No acute cortical disruption or malalignment. Joint space narrowing involving medial and lateral compartment with sclerosis along the articular surface of the medial tibial plateau. No gross chondrocalcinosis. No suprapatellar bursa joint effusion. No lytic or blastic lesions. No vascular calcifications. No subcutaneous emphysema. XR/XR knee RT 2V IMPRESSION: Bicompartmental osteoarthrosis, mild to moderate involving mostly the medial compartment. Electronically signed by: Pro Flores MD 10/23/2024 11:34 AM EDT
--- NOTE | ~2024-10-23 | XR_ITS ---
EXAMINATION: XR THORACIC SPINE CLINICAL INFORMATION: M54.50 - Low back pain, unspecified COMPARISON: December 15, 2015. TECHNIQUE: AP lateral and swimmer's projection. FINDINGS: Mild multilevel marginal osteophyte formation and endplate sclerosis and decreased intervertebral disc height involving mostly the mid to lower thoracic spine. Mild S-shaped curvature. No gross lytic or blastic lesions. No acute cortical disruption or gross malalignment. Vascular clips right upper quadrant abdomen prior cholecystectomy. XR/XR thoracic spine 2V IMPRESSION: Multilevel thoracic spondylosis without acute fracture or gross listhesis. Electronically signed by: Pro Flores MD 10/23/2024 11:31 AM EDT
[2024-10-23 10:39] LABS: MANUAL DIFF FLAG NO
[2024-10-23 11:01] LABS: Hematocrit 36.2 % (37.0-47.0); Hemoglobin 11.5 g/dl (12.0-16.0); Imm Gran Abs Auto 0.04 X10*3/uL (0.00-0.03); Imm Gran Pct Auto 0.4 % (0.0-0.4); Lymphocytes Absolute Auto 2.6 X10*3/uL (1.2-4.9); Mean Corpuscular HGB Conc 31.8 g/dl (31.0-35.0); Mean Corpuscular Hemoglobin 24.1 pg (27.0-33.0); Mean Corpuscular Volume 75.7 fL (80.0-98.0); NRBC Abs Auto 0.000 X10*3/uL (0.0-0.012); NRBC Pct Auto 0.0 /100WBC (0.0-0.2); Platelet Count 351 X10*3/uL (160-400); Red Blood Count 4.78 X10*6/uL (4.20-5.50); White Blood Count 9.3 X10*3/uL (4.8-10.8)
[2024-10-23 11:38] LABS: Alanine Aminotransferase 6 U/L (0-31); Albumin Level 4.1 g/dL (3.5-5.0); Alkaline Phosphatase 125 U/L (39-117); Anion Gap 11 (12-20); Aspartate Amino Transferase 17 U/L (5-31); Blood Urea Nitrogen 9 mg/dL (9-16); Calcium 8.8 mg/dL (8.4-10.2); Carbon Dioxide 26 mmol/L (22-29); Chloride 106 mmol/L (96-108); Cholesterol 169 mg/dL (<200); Estimated Glomerular Filt Rate > 60; HDL Cholesterol 44 mg/dL (>40); Potassium 3.6 mmol/L (3.3-5.1); Sodium 139 mmol/L (135-145); Total Protein 7.2 g/dL (6.5-8.0); Triglycerides 75 mg/dL (<150)
[2024-10-23 11:55] LABS: Free T4 (Free Thyroxine) 0.96 ng/dL (0.71-1.85)
[2024-10-23 12:06] LABS: Folate 9.7 ng/mL (> or = 4.0); Vitamin B12 240 pg/mL (200-900)
== END 2024-10-23 10:28 | disposition home or self-care (01) ==
LOC: HO.XRAY 10:27
DX: Z00.00 Encounter for general adult medical examination without abnormal findings (principal); Z13.29 Encounter for screening for other suspected endocrine disorder; Z13.21 Encounter for screening for nutritional disorder; Z13.220 Encounter for screening for lipoid disorders; M25.561 Pain in right knee; M54.50 Low back pain, unspecified; E66.01 Morbid (severe) obesity due to excess calories; Z68.41 Body mass index [BMI] 40.0-44.9, adult
CPT/HCPCS: 36415; 72070; 72100; 73560; 80053; 80061; 82306; 82607; 82746; 84439; 84443; 85025

== ENCOUNTER → 2024-10-23 10:49 | Outpatient (BNV) | payer OTHER, SELFPAY | PROVIDERS: Visit Provider Radiology Diagnostic Radiology | DX: M54.50 Low back pain, unspecified (principal); M47.814 Spondylosis without myelopathy or radiculopathy, thoracic region; M17.11 Unilateral primary osteoarthritis, right knee | CPT/HCPCS: 72070; 72100; 73560 ==

== ENCOUNTER 2024-11-13 13:55 | Outpatient (AMB) | payer OTHER, SELFPAY ==
--- NOTE | 2024-11-13 13:57 | MHC.OFFVIS ---
Vital Signs 11/13/24 14:02 Height 5 ft 6 in Weight 240 lb BMI 38.7 Intake Visit Reasons: New Pt - left foot pain/possible ingrown toenail Intake Note: Shazia is a 44 year old female who presents today as a new patient for a evaluation of her corn and callosities on the left foot. Patient states she has bilateral ingrown nails on multiple toes. She reports she has fungal infection? on her left great toe and that she has tried OTC treatment and found no relief. Patient states she is unable to walk due to the pain she experiences on the plantar aspect of the left foot . 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 Patient presents to the office for complaints of fungal toenails, painful callus to the plantar aspect of the left foot, pain to the left 4th toe and ingrown toenail to the right hallux. Patient states she has had a history of fungal toenails and previously used ciclopirox with improvement to the right hallucal nail and minimal improvement to the left hallucal nail. She states she has been experiencing pain to the plantar aspect of the left foot due to a callus for more than 3 months. Patient denies any purulence or drainage from the site. Patient also states she previously stubbed her left 4th toe approximately 6 months ago and states she has been experiencing intermittent [id number] pain to the toe. She states she has not had any previous imaging done. Patient also states she has pain to the right hallux due to an ingrown toenail in the medial and lateral borders. She denies any purulence or drainage from the site. Patient states she tried to trim her nail herself, but states she feels as though she may had made it worse. She denies any other pedal concerns. Denies any nausea vomiting fever or chills. [facility] Medical History Perianal lesion Smoker Depression Genital warts BRCA positive Surgical History History of gastric surgery History of surgery Family History Father No problems noted. Mother Lung tumor Maternal Grandmother Breast cancer Son No problems noted. Son No problems noted. Daughter No problems noted. Daughter No problems noted. Maternal Grandmother Breast cancer Maternal Aunt Ovarian cancer Social History Household Members: Children Both parents involved: Yes Caregiver staying overnight: No Housing: House Are you a primary neonatal intensive care unit nurse to a significant other at home: No Do you presently have visiting nurse or other home services: No Alcohol intake: former Patient Tobacco Use Status: Current everyday Tobacco user Cigarette Packs Per Day: 0.5 Cigarettes Per Day: 10 e-Cigarette/Vaping Use: Never Used Substance Use Type: Marijuana service: No Current occupational status: employed Cognitive needs: No Hearing needs: No Vision needs: Yes (pt wears contacts ) Review of Systems Const All systems reviewed & are unremarkable except as noted in HPI and below Physical Exam Vital Signs: BMI result Body Mass Index 38.7 Extrem Other: Bilateral lower extremity focused exam: Derm: Right foot-mild edema and erythema noted to the medial and lateral borders of the right hallux. No purulence or drainage noted. Incurvation of the medial and lateral borders of the right hallucal toenail noted. No clinical signs of infection. Left foot -hyperkeratotic lesion noted to the plantar aspect of the left foot in the area of the 4th and 5th metatarsal heads. No edema or erythema noted. No purulence or drainage noted. Mild discoloration noted to the left hallucal nail with thickening of the nail and subungual debris. Toenails times 10 noted to be within normal length. Vascular: DP/PT pedal pulses bilateral palpable. Capillary refill time bilaterally less than 3 seconds. No varicosities noted. Neuro: Protective sensation is grossly intact. Musculoskeletal: Right foot- pain on palpation to the medial and lateral borders of the right hallux along the nail. No pain with range of motion of the forefoot or hindfoot. No gross abnormalities noted. Left foot- pain on palpation to the 4th toe. Pain with range of motion of the 4th toe. Pain on palpation to the hyperkeratotic lesion noted to the plantar aspect of the foot. Range of motion of the forefoot and hindfoot within normal limits. Ankle/foot/toe images:  1. left foot callus 2. left 4th toe pain 3. right hallux B/L borders ingrown toenail Office Procedures AMB Debridement/Avulsion Podia Details: Procedure: Partial nail avulsion of the medial border of the right hallucal nail Cleansed right hallux with alcohol swab. Local anesthetic (10 cc of 1% lidocaine plain) was injected to the right hallux in a hallux block fashion with no incident. Next using a [place] elevator, the medial border of the right hallucal nail was loosened and freed from the nailbed to the nail matrix. Next using an [place] anvil, the offending nail border was trimmed and was removed using a hemostat. No purulence was noted at this time. Hemostasis was achieved and triple antibiotic ointment was applied to the area with a Band-Aid and Coban. 96990 Partial/Total nail avulsion (1 nail) Procedure code (CPT) selection complete AMB Debridement/Avulsion Podia Details: Procedure: Partial nail avulsion of the lateral border of the right hallucal nail Cleansed right hallux with alcohol swab. Patient was previously anesthetized using local 1% lidocaine plain from earlier procedure. Next using a [place] elevator, the lateral border of the right hallucal nail was loosened and freed from the nailbed to the nail matrix. Next using an [place] anvil, the offending nail border was trimmed and was removed using a hemostat. No purulence was noted at this time. Hemostasis was achieved and triple antibiotic ointment was applied to the area with a Band-Aid and Coban. [id number] Partial/Total nail avulsion (eac additional nail) Procedure code (CPT) selection complete Office Meds lidocaine HCl 10 mg/mL (1 %) injection solution Performing Provider: Faviola Lei DPM Performing Location: [facility] Administered by: Faviola Lei DPM on 11/13/24 15:28 Dose Route Admin Location Dispensed Lot Number Expiration Date [facility] Educational Consultant 10 mL subcut 10 mL [id number] Total Dispensed Waste 10 mL 0 % Triple Antibiotic 3.5 mg-400 unit-5,000 unit topical ointment packet Performing Provider: Faviola Lei DPM Performing Location: [facility] Administered by: Faviola Lei DPM on 11/13/24 15:28 Dose Route Admin Location Dispensed Lot Number Expiration Date [facility] Educational Consultant 1 appl topical 1 appl [id number] [place] povidone-iodine 10 % topical swab Performing Provider: Faviola Lei DPM Performing Location: [facility] Administered by: Faviola Lei DPM on 11/13/24 15:28 Dose Route Admin Location Dispensed Lot Number Expiration Date [facility] Educational Consultant 2 appl topical 2 appl [id number] [employer] [place]. ethyl chloride 100 % topical spray Performing Provider: Faviola Lei DPM Performing Location: [facility] Administered by: Faviola Lei DPM on 11/13/24 15:28 Dose Route Admin Location Dispensed Lot Number Expiration Date [facility] Educational Consultant 3 appl topical 116 mL [id number] [employer]. Results Reviewed Results Reviewed: Ordered left foot three views weightbearing x-rays to be performed prior to next visit. Assessment & Plan Assessment & Plan (1) Foot callus: Code(s): L84 - Corns and callosities Category: Medical (2) Onychomycosis: Code(s): B35.1 - Tinea unguium Category: Medical (3) Ingrowing nail, right great toe: Code(s): L60.0 - Ingrowing nail Category: Medical (4) Left foot pain: Code(s): M79.672 - Pain in left foot Category: Medical (5) Nondisplaced fracture of lesser toe of left foot: Code(s): S92.505A - Nondisplaced unspecified fracture of left lesser toe(s), initial encounter for closed fracture Category: Medical Qualifiers: Encounter type: initial encounter Fracture type: closed Phalanx: unspecified phalanx Qualified Code(s): S92.505A - Nondisplaced unspecified fracture of left lesser toe(s), initial encounter for closed fracture (6) Pain in right toe(s): Code(s): M79.674 - Pain in right toe(s) Category: Medical Plan Discussed conservative treatment options with patient. Performed bilateral border right hallux partial nail avulsion with no incident. Provided aftercare information form to patient: The patient is to keep the dressing on for 24 hours. Tomorrow patient may shower and is to soak the foot in Epsom salt and warm water. Patient is to dry the area completely and then put triple antibiotic or Neosporin on to the area with a Band-Aid for the next 2 weeks. Provided patient with prescription for ciclopirox 8% topical solution to be applied to the left hallucal nail every day advised patient to file down the previous layer of the ciclopirox before applying another layer. Discussed with patient to wear supportive shoe gear and shoes with a wide toe box. Patient may be weight-bearing as tolerated using pain as a guide. Debrided the hyperkeratotic lesion noted to the plantar aspect of the left foot using a #11. Blade without any incident. Advised patient to apply Vaseline or a thick cream to the area to delay the reoccurrence rate of the hyperkeratotic lesion. Discussed with the patient to wear supportive shoe gear to alleviate strain noted to the left 4th toe. Ordered left foot x-rays to be performed prior to next visit to rule out left 4th toe fracture. Patient is to return to the office in 2 weeks. Advised patient to call the office or go to the ED if worsening adverse events occur. Orders: Orders XR foot LT min 3V Today M79.672 - Pain in left foot, S92.505A - Nondisplaced unspecified fracture of left lesser toe(s), initial encounter for closed fracture AMB Debridement/Avulsion Podiatry Today L60.0 - Ingrowing nail, M79.674 - Pain in right toe(s) AMB Debridement/Avulsion Podiatry Today L60.0 - Ingrowing nail, M79.674 - Pain in right toe(s) Medications: New ciclopirox 8% 1 appl topical BEDTIME 6.6 mL 0RF Onychomycosis 4 weeks B35.1 - Tinea unguium, L84 - Corns and callosities, M79.671 - Pain in right foot, M79.672 - Pain in left foot Coding Level of Care Code New Pt Level 4 (63211) Diagnoses Foot callus L84 Onychomycosis B35.1 Ingrowing nail, right great toe L60.0 Left foot pain M79.672 Closed nondisplaced fracture of phalanx of lesser toe of left foot, unspecified phalanx, initial encounter S92.505A Encounter type: initial encounter Fracture type: closed Phalanx: unspecified phalanx Pain in right toe(s) M79.674 CPT Codes Skin Debridement - CPT: 94846 Partial/Total nail avulsion (1 nail) ([id number]) Skin Debridement - CPT: 00004 Partial/Total nail avulsion (eac additional nail) ([id number])
[2024-11-13 14:02] VITALS: BMI 38.7
== END 2024-11-13 15:25 | disposition home or self-care (01) ==
LOC: HO.HPODS 13:56
PROVIDERS: Visit Provider Student in an Organized Health Care Education/Training Program
DX: L84 Corns and callosities (principal); B35.1 Tinea unguium; L60.0 Ingrowing nail; M79.672 Pain in left foot; M79.675 Pain in left toe(s)
CPT/HCPCS: 11055; 11730; 99203

== ENCOUNTER → 2024-11-13 13:55 | Outpatient (BNVA) | payer OTHER, SELFPAY | PROVIDERS: Visit Provider Student in an Organized Health Care Education/Training Program | DX: L60.0 Ingrowing nail (principal); L84 Corns and callosities; B35.1 Tinea unguium; M79.672 Pain in left foot; M79.671 Pain in right foot; M79.674 Pain in right toe(s); M79.675 Pain in left toe(s); S92.505A Nondisplaced unspecified fracture of left lesser toe(s), initial encounter for closed fracture; X58.XXXA Exposure to other specified factors, initial encounter; Y93.9 Activity, unspecified; Y92.9 Unspecified place or not applicable; Y99.9 Unspecified external cause status | CPT/HCPCS: 11055; 11730; 99202; J2003 ==

== ENCOUNTER 2024-12-02 12:47 | Outpatient (AMB) | payer OTHER, SELFPAY ==
--- NOTE | 2024-12-02 12:53 | MHC.OFFVIS ---
Vital Signs 12/02/24 12:57 Height 5 ft 6 in Weight 251 lb 8 oz BMI 40.6 BP 122/82 Blood Pressure Location Rt brachial Position Sitting Pulse 83 Pulse Source Pulse Oximeter Pulse Oximetry (%) 97 Oxygen Delivery Method Room Air Intake Visit Reasons: low back pain Intake Note: Pain today 08/19 Budget Officer Required: No Accompanied by: Self / Same As Patient Allergies codeine (Tylenol-Codeine #3) Adverse Reaction (Intermediate, Verified 12/02/24 13:00) Stomach pain/burning HPI Comments Details: The patient is a 44-year-old female presenting with chronic low back pain. The pain began a few years ago, initially associated with a job involving heavy lifting, which led to a back fracture that was not treated at the time. Over the years, the pain has worsened, and recent imaging revealed osteoarthritis in several spots in the back and knee. The pain radiates down the right leg, described as stiffness with pins and needles, particularly at the end of the day. The patient reports that the pain does not extend to the heel and toes but affects daily activities, including sleep, with pain levels ranging from 4 to 9 out of 10. The patient has a history of gastric sleeve surgery in 2014 and is advised against taking ibuprofen due to this procedure. She smokes half a pack of cigarettes a day and uses cannabis on weekends, with minimal alcohol consumption. Physical therapy was recommended but not started due to scheduling conflicts, and the patient is considering interventional pain management options. The patient has a history of obesity, with difficulty losing weight post- despite previous gastric sleeve surgery. She is awaiting insurance approval for [employer] to aid in weight management. The patient reports strong familial history of osteoarthritis and osteoporosis. - Onset: Pain began a few years ago, associated with heavy lifting at work. - Quality: Described as stiffness with pins and needles, particularly at the end of the day. - Location: Primarily in the lower back, radiating down the right leg. - Exacerbating factors: Movement, standing, walking, climbing stairs, bending, and changing positions increase pain. - Relieving factors: None effectively noted; [id number] medications and topical treatments provide minimal relief. - Interference: Affects daily activities, sleep, and personal care. - Affect: Pain impacts sleep and daily functioning, causing frustration and emotional distress. - Analgesia: Current pain levels range from 4 to 9 out of 10; yrrw-jfc-bhbgxwl medications provide minimal relief. - Adverse Effects: Avoids ibuprofen due to gastric sleeve surgery; concerned about liver impact from other medications. - Activities of Daily Living: Pain interferes with work, homemaking, and childcare responsibilities. - Aberrant Drug Related Behaviors: None reported. Oswestry Low Back Pain Disability Score=23 [facility] Medical History Pain in right toe(s) Nondisplaced fracture of lesser toe of left foot Left foot pain Pain in both feet Foot callus Ingrowing nail, right great toe Onychomycosis Perianal lesion Smoker Depression Genital warts BRCA positive Surgical History History of gastric surgery History of surgery Family History Father No problems noted. Mother Lung tumor Maternal Grandmother Breast cancer Son No problems noted. Son No problems noted. Daughter No problems noted. Daughter No problems noted. Maternal Grandmother Breast cancer Maternal Aunt Ovarian cancer Social History Household Members: Children Both parents involved: Yes Caregiver staying overnight: No Housing: House Are you a primary geriatric personal care aide to a significant other at home: No Do you presently have visiting nurse or other home services: No Alcohol intake: former Patient Tobacco Use Status: Current everyday Tobacco user Cigarette Packs Per Day: 0.5 Cigarettes Per Day: 10 e-Cigarette/Vaping Use: Never Used Substance Use Type: Marijuana service: No Current occupational status: employed Cognitive needs: No Hearing needs: No Vision needs: Yes (pt wears contacts ) Review of Systems Const Details: - Musculoskeletal: Reports chronic low back pain radiating to the right leg, stiffness, and pins and needles sensation. - Neurological: Denies pain extending to heel and toes, reports occasional leg weakness. - Sleep: Reports difficulty sleeping due to pain, with frequent position changes. - Gastrointestinal: Denies use of ibuprofen due to gastric sleeve surgery. - Psychiatric: Reports frustration and emotional distress due to pain and its impact on daily life. All systems reviewed & are unremarkable except as noted in HPI and below Physical Exam Vital Signs: Last Vital Signs Pulse 83 12/02/24 12:57 BP 122/82 12/02/24 12:57 Pulse Ox 97 12/02/24 12:57 Oxygen Delivery Method Room Air 12/02/24 12:57 BMI result Body Mass Index 40.6 General: Appears afebrile. Morbidly obese. Alert and oriented. Mood and affect appropriate. Follows and participates in conversation appropriately. Respiratory effort is unlabored. No cough. Able to transition from sit to stand unassisted. Ambulates with bilaterally normal heel strike and toe off. General: Yes no CVA tenderness Back/Spine/Pelvis Other: Patient is able to walk and stand on heels and tip toes with no difficulties demonstrating good motor tone. Normal gait, no limping. Lumbar extension reproduces mild to moderate pain, lumbar flexion and extension reproduces moderate pain. Demonstrates 5/5 strength of quadriceps bilaterally as well as flexion/dorsiflexion of bilateral feet against resistance. 2+ pedal pulses bilaterally. Straight leg rise with dorsiflexion negative bilaterally. +2 patellar and achilles reflexes bilaterally. Facet loading test positive bilaterally. Eusebio?s, Pelvic compression and Stinchfield tests are negative bilaterally. No groin pain with I/E hip rotations. Valsalva maneuver negative. Back: no CVA tenderness Cervical Spine: cervical ROM normal, cervical muscular tenderness, No Cervical spine scars present and No Cervical spine tenderness Thoracic/Lumbar Spine: thoracic and lumbar spine normal to inspection, No Thoracic/lumbar spine scar(s), Lasegue's sign negative, straight leg raise negative bilaterally, pain with thoraco-lumbar ROM, paraspinal muscle tenderness, thoraco-lumbar ROM limited, No thoracic spinal tenderness and lumbar spinal tenderness at L4 and at L5 Pelvis: no sciatic notch tenderness Sacroiliac joints: bilaterally tender to palpation Results Reviewed Results Reviewed: XR THORACIC SPINE 10/23/24 CLINICAL INFORMATION: M54.50 - Low back pain, unspecified COMPARISON: December 15, 2015. TECHNIQUE: AP lateral and swimmer's projection. FINDINGS: Mild multilevel marginal osteophyte formation and endplate sclerosis and decreased intervertebral disc height involving mostly the mid to lower thoracic spine. Mild S-shaped curvature. No gross lytic or blastic lesions. No acute cortical disruption or gross malalignment. Vascular clips right upper quadrant abdomen prior cholecystectomy. IMPRESSION: Multilevel thoracic spondylosis without acute fracture or gross listhesis. XR LUMBOSACRAL SPINE 10/23/24 CLINICAL INFORMATION: M54.50 - Low back pain, unspecified COMPARISON: December 15, 2015. TECHNIQUE: AP and lateral views. FINDINGS: Anterior marginal osteophyte formation and endplate sclerosis and decreased intervertebral disc height at T11-12 and to a lesser extent T10-11. No acute cortical disruption or malalignment. No lytic or blastic lesions. IMPRESSION: Spondylosis T10-11 and T11-T12. Assessment & Plan Assessment & Plan (1) Lower back pain: Code(s): M54.50 - Low back pain, unspecified Category: Medical (2) Spondylosis of thoracolumbar spine: Code(s): M47.815 - Spondylosis without myelopathy or radiculopathy, thoracolumbar region Category: Medical (3) Morbid obesity with BMI of 40.0-44.9, adult: Code(s): E66.01 - Morbid (severe) obesity due to excess calories; Z68.41 - Body mass index [BMI] 40.0-44.9, adult Category: Medical Plan The plan for managing the patient's chronic low back pain includes initiating physical therapy at [facility]. If physical therapy is not effective, interventional procedures such as diagnostic injections for potential lumbar medial branch radiofrequency ablation may be considered to manage axial low back pain. The patient will continue with weight management to reduce BMI below 40, which is necessary for certain procedures such as Sprint PNS trial. Discussed benefits of nutrition consult to address dietary challenges post-gastric sleeve surgery, and the patient is awaiting insurance approval for Zepbound to assist with weight loss. All questions and concerns have been answered and patient agreed with the treatment plan. Follow up after PT and sooner as needed. Patient was informed and verbally consented to the use of an ambient scribe for clinic note documentation during this visit. Orders: Orders PT Evaluation and Treatment 12/02/24 M47.815 - Spondylosis without myelopathy or radiculopathy, thoracolumbar region, M54.50 - Low back pain, unspecified Medications: New lidocaine 5% leave on most painful area for up to 12 hrs topically daily; 30 days 30 ea 3RF pain M47.815 - Spondylosis without myelopathy or radiculopathy, thoracolumbar region, M54.50 - Low back pain, unspecified Coding Level of Care Code New Pt Level 4 (45578) Diagnoses Lower back pain M54.50 Spondylosis of thoracolumbar spine M47.815 Morbid obesity with BMI of 40.0-44.9, adult E66.01; Z68.41
[2024-12-02 12:57] VITALS: BP 122/82; PULSE 83; O2SAT 97; BMI 40.6
== END 2024-12-02 13:45 | disposition home or self-care (01) ==
LOC: HO.PMC 12:47
PROVIDERS: Visit Provider Nurse Practitioner Family
DX: M54.50 Low back pain, unspecified (principal); M47.815 Spondylosis without myelopathy or radiculopathy, thoracolumbar region; E66.01 Morbid (severe) obesity due to excess calories; Z68.41 Body mass index [BMI] 40.0-44.9, adult
CPT/HCPCS: 99204

== ENCOUNTER → 2024-12-02 12:47 | Outpatient (BNVA) | payer OTHER, SELFPAY | PROVIDERS: Visit Provider Nurse Practitioner Family | DX: M47.815 Spondylosis without myelopathy or radiculopathy, thoracolumbar region (principal); M54.50 Low back pain, unspecified; E66.01 Morbid (severe) obesity due to excess calories; Z68.41 Body mass index [BMI] 40.0-44.9, adult | CPT/HCPCS: 99202 ==